=== PATIENT | male | born 1970 | race Caucasian/White ===

== ENCOUNTER → 2025-01-12 15:10 | Outpatient (REF) | payer BC, SELFPAY ==
[2025-01-17 03:40] LABS: HPV, High Risk Detected; HPV, High Risk Source Anal
== END ==
LOC: CLAB 15:10
PROVIDERS: ATTENDING PHYSICIAN Surgery
DX: Z11.51 Encounter for screening for human papillomavirus (HPV) (principal)
CPT/HCPCS: 87624; 88112

== ENCOUNTER 2025-02-03 06:18 | Day surgery (SDC) | payer BC, SELFPAY ==
[2025-01-27 14:10] VITALS: BMI 30.8
[2025-02-03 09:17] VITALS: BMI 30.8
[2025-02-03 09:26] VITALS: BMI 30.8
[2025-02-03 09:27] VITALS: BP 140/91
[2025-02-03] MEDS: NORMOSOL-R/PLASMALYTE-A 1000 IV (09:33)
[2025-02-03] MEDS: TYLENOL 1000 MG PO (09:34)
[2025-02-03 11:08] VITALS: BP 126/78
[2025-02-03 11:15] VITALS: BP 117/77
[2025-02-03 11:30] VITALS: BP 132/84
[2025-02-03 11:45] VITALS: BP 140/87
== END 2025-02-03 11:30 | disposition home or self-care (01) ==
LOC: SDS 06:18
PROVIDERS: ATTENDING PHYSICIAN Surgery
DX: K60.50 Anorectal fistula, unspecified (principal)
CPT/HCPCS: 46270; 36415; 93005